=== PATIENT | female | born 1970 | race Hispanic/Latino ===

== ENCOUNTER 2017-06-11 18:39 | Emergency (ER) | payer OTHER ==
[2017-06-11 18:46] VITALS: BP 130/74; PULSE 62; RESP 16; TEMP 97; O2SAT 99
[2017-06-11] MEDS ORDERED: Lidocaine 1% Inj (20ml) IJ ONE (18:57)
--- NOTE | 2017-06-11 19:44 | ED PDOC ---
Upper Extremity Pain/Injury Time Seen by Provider: 06/11/17 18:53 Chief Complaint (Nursing): Upper Extremity Problem/Injury Chief Complaint (Provider): Finger Laceration History Per: Patient History/Exam Limitations: no limitations Onset/Duration Of Symptoms: Hrs (1 hour prior to arrival) Current Symptoms Are (Timing): Still Present Additional Complaint(s): 46 y/o female presents to the ED post injury to index finger on her left hand. Patient states she was cutting galvez and sustained laceration to left hand 2nd digit. Bleeding was controlled. Tetanus up to date. [ End ] Past Medical History Reviewed: Historical Data, Nursing Documentation, Vital Signs Vital Signs: Last Vital Signs Temp 97.0 F L 06/11/17 18:44 Pulse 62 06/11/17 18:44 Resp 16 06/11/17 18:44 BP 130/74 06/11/17 18:44 Pulse Ox 99 06/11/17 18:44 - Medical History PMH: No Chronic Diseases - Surgical History Surgical History: No Surg Hx - Family History Family History: States: Unknown Family Hx - Social History Current smoker - smoking cessation education provided: No Ex-Smoker (has not smoked in the last 12 months): No Alcohol: None Drugs: Denies - Allergies Allergies/Adverse Reactions: Allergies Allergy/AdvReac Type Severity Reaction Status Date / Time No Known Allergies Allergy Verified 06/11/17 18:44 Review of Systems ROS Statement: Except As Marked, All Systems Reviewed And Found Negative Constitutional: Negative for: Fever Musculoskeletal: Positive for: Hand Pain (left index finger) Neurological: Negative for: Numbness Physical Exam - Reviewed Nursing Documentation Reviewed: Yes Vital Signs Reviewed: Yes - Physical Exam Extremity: Positive for: Other (small 0.5 superficial flap laceration on the distill phalanx of the index finger with parital nail involvement ) - ECG O2 Sat by Pulse Oximetry: 99 Medical Decision Making Medical Decision Making: Time: --18:57 Impression: --Index Finger Laceration Plan: --Lidocaine 3ml IJ Reassess -- Scribe Attestation: Documented by Wade Bridges acting as a scribe for Clifford Guillaume MD. Disposition - Clinical Impression Clinical Impression: Finger laceration - Patient ED Disposition Is Patient to be Admitted: No - Disposition Disposition: Routine/Home Disposition Time: 19:20 Condition: STABLE Additional Instructions: Suture removal in 7 days Instructions: Finger Laceration (ED), Nail Avulsion (ED) Forms: [facility] (Danish) Print Language: SOUTH SUDANESE
== END 2017-06-11 19:53 | disposition home or self-care (01) ==
LOC: H.ER 18:39
DX: S61.211A Laceration without foreign body of left index finger without damage to nail, initial encounter (principal); W26.0XXA Contact with knife, initial encounter; Y92.89 Other specified places as the place of occurrence of the external cause